=== PATIENT | female | born 1955 | race Caucasian/White ===

== ENCOUNTER 2018-01-27 04:50 | Emergency (ER) | payer BC ==
[~2018-01-27] VITALS: Ht 160 cm; Wt 70.3 kg
[~2018-01-27 04:50] MED LIST: ASPI-655 PO; ATOR40TA PO; METO25TA2 PO
[2018-01-27 04:52] VITALS: BP 155/93
[2018-01-27] MEDS ORDERED: ASPIRIN ONE (05:08)
--- NOTE | 2018-01-27 05:08 | NUR ---
DR. DR. GRIJALVA AT BEDSIDE
[2018-01-27] MEDS ORDERED: LOSA25TA12 PO (05:11)
[2018-01-27] MEDS ORDERED: MAGN250T2 PO (05:11)
[2018-01-27] MEDS ORDERED: NITR0.4T26 SL (05:11)
[2018-01-27] MEDS ORDERED: UBID30CA9 PO (05:15)
[2018-01-27] MEDS ORDERED: CHOL500016 PO (05:15)
--- NOTE | 2018-01-27 05:19 | PCM.EKG ---
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
[2018-01-27 05:20] VITALS: BP 125/83
--- NOTE | 2018-01-27 05:20 | NUR ---
BLOOD OBTAINED VIA IV START BY THIS NURSE AND TAKEN TO LAB PER ORDERS.
--- NOTE | 2018-01-27 05:21 | NUR ---
XRAY RADIOLOGY AT BEDSIDE FOR XRAY
--- NOTE | 2018-01-27 05:23 | ER.PDOC ---
General Chief Complaint: Chest Pain-Cardiac Nature Stated Complaint: SOB/CP Time seen by MD: 05:10 Source: patient Exam Limitations: no limitations History of Present Illness Initial Comments Chest pain on and off for 3 days, woke up this morning with CP and SOB Timing/Duration: 1 hour Severity/Quality: moderate, pressure, sharp Radiation: no radiation Prior CP/Workup: Cardiac Cath Nitro Today/Relief: No Nitro Taken Today Aspirin Today: No Aspirin Today Prior symptoms/Treatment: Similar symptoms previous, Recenly Seen (wearing a monitor for 14 days) Allergies: Coded Allergies: cefdinir (Verified Allergy, Unknown, 01/27/18) cephalexin (Verified Allergy, Unknown, NOT SURE, 05/14/17) magnesium hydroxide (Verified Allergy, Unknown, 01/27/18) magnesium hydroxide (Verified Allergy, Unknown, 01/27/18) Home Meds Active Scripts Aspirin (ASPIRIN EC) 81 Mg Tablet.dr, 81 MG PO DAILY, #30 TAB 3 Refills Prov:YANG CM MD 05/15/17 Metoprolol Succinate (TOPROL XL) 25 Mg Tab.er.24h, 25 MG PO DAILY, #30 TAB 3 Refills Prov:YANG CM MD 05/15/17 Atorvastatin 40MG (LIPITOR 40MG) 40 Mg Tablet, 40 MG PO HS, #30 TABLET 3 Refills Prov:YANG CM MD 05/15/17 Reported Medications Ubidecarenone (COQ-10) 30 Mg Capsule, 30 MG PO DAILY24, CAPSULE 01/27/18 Cholecalciferol (Vitamin D3) (VITAMIN D3) 5,000 Unit Tablet, 1 TAB PO DAILY, # 30 TAB 01/27/18 Nitroglycerin (NITROGLYCERIN) 0.4 Mg Tab.subl, 0.4 MG SL PRN PRN for CHEST PAIN 01/27/18 Magnesium (MAGNESIUM) 250 Mg Tablet, 250 MG PO DAILY24, TABLET 01/27/18 Losartan Potassium (LOSARTAN POTASSIUM) 25 Mg Tablet, 1 TAB PO DAILY, #90 TAB 1 Refill 01/27/18 Past Medical History Medical History: angina, high cholesterol, hypertension Surgical History: cardiac cath, cholecystectomy, , tubal LMP (females 10-50): tubal Social History Smoking: non-smoker Alcohol Use: none Drug Use: none Respiratory: see HPI Cardiovascular: see HPI All Other Systems: Reviewed and Negative Physical Exam General Appearance: No Apparent Distress, WD/WN HEENT: PERRL/EOMI, Normal ENT Inspection, TMs Normal, Pharynx Normal Neck: Non-Tender, Full Range of Motion, Supple, Normal Inspection Respiratory: chest non-tender, lungs clear, normal breath sounds, no respiratory distress, no accessory muscle use Cardiovascular: Normal Peripheral Pulses, Regular Rate, Rhythm, No Edema, No Gallop, No JVD, No Murmur Gastrointestinal: Normal Bowel Sounds, No Organomegaly, No Pulsatile Mass, Non Tender, Soft Extremities: Normal Range of Motion, Non-Tender, Normal Inspection, No Pedal Edema, No Calf Tenderness, Normal Capillary Refill Neurologic/Psychiatric: bench hand machine II-XII NML as Tested, No Motor/Sensory Deficits, Alert, Normal Mood/Affect, Oriented x 3 Skin: Normal Color, Warm/Dry Lymphatic: No Adenopathy Progress Progress 2 sets of Troponin are negative. Spoke to Dr. Hanks suction roller for Dr. Madden , he told me that their office will call patient tomorrow morning and tell her when to come in. Patient continues to be pain free and feels better to go home. EKG/XRAY/CT/US EKG: NSR XRAY: chest (No active disease) Departure Time of Disposition: 08:33 Disposition: 01 HOME, SELF-CARE Impression: Primary Impression: Chest pain Condition: Improved Referrals: YAYO LANDRY NP (PCP) PRIMARY CARE PROVIDER Additional Instructions: F/U with your [employer] tomorrow, expect a call from them. Call them if you do not here from them by noon. Return to ED as needed. Duration or Time Spent with Pa: 90 mins Problem Qualifiers Primary Impression: Chest pain Chest pain type: unspecified Qualified Codes: R07.9 - Chest pain, unspecified ORALIA GRIJALVA MD Jan 27, 2018 05:23 JOSE RHODES MD Jan 27, 2018 08:35
--- NOTE | 2018-01-27 05:25 | NUR ---
STATUS PT RATES PAIN 4/10; STATES SOME RELIEF FROM NITRO. VSS. EDP UPDATED, NO NEW ORDERS AT THIS TIME
[2018-01-27] MEDS ORDERED: ASPIRIN PO PRN (05:30)
[2018-01-27] MEDS ORDERED: NITROSTAT SL PRN (05:30)
[2018-01-27 05:31] LABS: BASOPHIL # 0.1 10^3/uL (0.0-0.1); BASOPHIL % 1.5 % (0.0-0.2); EOSINOPHIL # 0.3 10^3/uL (0.0-0.2); EOSINOPHIL % 4.8 % (0.0-5.0); LYMPHOCYTES # 2.2 10^3/uL (1.0-4.8); LYMPHOCYTES % 37.8 % (24.0-44.0); MEAN CELL HGB 31.2 pg (26-34); MEAN CELL HGB CONCENTRATION 34.1 g/dL (33-37); MEAN CORP VOLUME 91.5 fL (78-100); MEAN PLATELET VOLUME 9.8 fL (7.8-11.0); MONOCYTES # 0.6 10^3/uL (0.3-0.8); NEUTROPHIL # 2.7 10^3/uL (1.8-7.7); NEUTROPHILS % 45.6 % (41.0-85.0); RED CELL DISTRIBUTION WIDTH 13.6 % (11.5-14.5); WHITE BLOOD CELL 5.8 10^3/uL (4.5-11.0)
--- NOTE | 2018-01-27 05:38 | DIREP ---
PROCEDURE:CHEST 1 VIEW COMPARISON:[facility], CR, XRAY CHEST SINGLE VW, 05/14/2017, 11:08 AM. INDICATIONS:cp FINDINGS: LUNGS/PLEURA:No significant pulmonary parenchymal abnormalities. No effusions. VASCULATURE:Normal. Unremarkable pulmonary vasculature. CARDIAC:Normal. No cardiac silhouette abnormality or cardiomegaly. MEDIASTINUM:Normal. No visible mass or adenopathy. BONES:Normal. No fracture or visible bony lesion. OTHER:Electronic device projects over the left hemithorax CONCLUSION:No active cardiopulmonary disease process Dictated by: Phil Levi M.D. on 01/27/2018 at 05:36 AM
[2018-01-27 05:51] LABS: CARBON DIOXIDE 26.1 mmol/L (20.0-32)
[2018-01-27 05:52] LABS: ALANINE AMINOTRANSFERASE(ML) 31 U/L (12-78); ALKALINE PHOSPHATASE 114 U/L (50-136); ASPARTATE AMINO TRANSFERASE 19 U/L (0-35); CALCIUM 9.2 mg/dL (8.4-10.5); GLUCOSE 101 mg/dL (70-110)
[2018-01-27 07:30] VITALS: BP 118/84
--- NOTE | 2018-01-27 07:41 | NUR ---
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
--- NOTE | 2018-01-27 08:05 | NUR ---
[facility] ATTEMPTED TO CALL THE HEART GROUP AGAIN, DOCTOR JOSE SPOKE WITH THEM AND THEY WILL HAVE SOMEONE CALL HIM BACK. Addendum: 01/27/18 at 0810 ilan [facility]
--- NOTE | 2018-01-27 08:30 | NUR ---
STATUS DOCTOR MEAGAN SPOKE WITH DOCTOR RIZZO, WANTS PATIENT TO FOLLOW UP TOMORROW, HIS OFFICE WILL CALL HER TOMORROW.
[2018-01-27 08:45] VITALS: BP 112/83
[2018-01-27 08:46] VITALS: BP 112/83
== END 2018-01-27 08:40 | disposition home or self-care (01) ==
LOC: ER 04:50
DX: R07.9 Chest pain, unspecified (principal); R06.02 Shortness of breath; Z95.818 Presence of other cardiac implants and grafts; I20.9 Angina pectoris, unspecified; E78.00 Pure hypercholesterolemia, unspecified; I10 Essential (primary) hypertension; Z90.49 Acquired absence of other specified parts of digestive tract; Z88.1 Allergy status to other antibiotic agents; Z88.8 Allergy status to other drugs, medicaments and biological substances; Z79.82 Long term (current) use of aspirin; Z79.899 Other long term (current) drug therapy
CPT/HCPCS: 36415; 71045; 80053; 82550; 83880; 84484; 85025; 85610; 85730; 93005; 99285

== ENCOUNTER → 2021-09-06 | Outpatient (CLI) | payer OTHER ==
[~2021-09-06] MED LIST changes: -ASPI-655 PO; +ASPI-929 PO; +CHOL500016 PO; +LOSA25TA12 PO; +MAGN250T3 PO; +NITR0.4T26 SL; +UBID30CA9 PO
[2021-09-06 14:42] LABS: MEAN CORP HGB 31.9 pg (26-34); RED CELL DISTRIBUTION WIDTH 13.1 % (11.5-14.5)
[2021-09-06 15:08] LABS: CARBON DIOXIDE 30.7 mmol/L (20.0-32); GLUCOSE 124 mg/dL (70-110)
== END | disposition home or self-care (01) ==
LOC: LAB 14:29
PROVIDERS: ATTEND Nurse Practitioner Family
DX: R07.9 Chest pain, unspecified (principal); E78.00 Pure hypercholesterolemia, unspecified; I10 Essential (primary) hypertension; R00.2 Palpitations
CPT/HCPCS: 36415; 80053; 80061; 84439; 84443; 84484; 85027

== ENCOUNTER 2022-01-08 08:17 | Emergency (ER) | payer OTHER ==
[~2022-01-08] VITALS: Ht 162.6 cm; Wt 72.6 kg
[2022-01-08 08:52] VITALS: BP 148/115
--- NOTE | 2022-01-08 08:57 | NUR ---
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
[2022-01-08 09:17] VITALS: BP 156/88
--- NOTE | 2022-01-08 09:41 | ER.PDOC ---
General Chief Complaint: General Complaint Stated Complaint: FEVER/CHILLS,COUGH,CONGESTION Time seen by MD: 09:39 Source: patient Exam Limitations: no limitations History of Present Illness Initial Comments Fever, cough and runny nose for 2 days. Timing/Duration: gradual Severity: moderate Associated Symptoms: fever/chills, runny nose, cough Allergies: Coded Allergies: cefdinir (Verified Allergy, Unknown, 01/27/18) cephalexin (Verified Allergy, Unknown, NOT SURE, 05/14/17) magnesium hydroxide (Verified Allergy, Unknown, 01/27/18) magnesium hydroxide (Verified Allergy, Unknown, 01/27/18) Home Meds Active Scripts Aspirin (ASPIRIN EC) 81 Mg Tablet.dr, 81 MG PO DAILY, #30 TAB 3 Refills Prov:YANG CM MD 05/15/17 Metoprolol Succinate (TOPROL XL) 25 Mg Tab.er.24h, 25 MG PO DAILY, #30 TAB 3 Refills Prov:YANG CM MD 05/15/17 Atorvastatin 40MG (LIPITOR 40MG) 40 Mg Tablet, 40 MG PO HS, #30 TABLET 3 Refills Prov:YANG CM MD 05/15/17 Reported Medications Ubidecarenone (COQ-10) 30 Mg Capsule, 30 MG PO DAILY24, CAPSULE 01/27/18 Cholecalciferol (Vitamin D3) (VITAMIN D3) 5,000 Unit Tablet, 1 TAB PO DAILY, #30 TAB 01/27/18 Nitroglycerin (NITROGLYCERIN) 0.4 Mg Tab.subl, 0.4 MG SL PRN PRN for CHEST PAIN 01/27/18 Magnesium (MAGNESIUM) 250 Mg Tablet, 250 MG PO DAILY24, TABLET 01/27/18 Losartan Potassium (LOSARTAN POTASSIUM) 25 Mg Tablet, 1 TAB PO DAILY, #90 TAB 1 Refill 01/27/18 Constitutional: see HPI EENTM: see HPI Respiratory: see HPI Cardiovascular: no symptoms reported Gastrointestinal: no symptoms reported All Other Systems: Reviewed and Negative Past Medical History Medical History: hypertension Surgical History: cholecystectomy, Family History Significant Family History: no pertinent family hx Social History Smoking: non-smoker Alcohol Use: none Drug Use: none Physical Exam Eye: eyes nml inspection Nose: rhinorrhea Throat: pharynx nml, airway nml Neck: nml inspection, supple Respiratory: no resp.distress, breath sounds nml Abdomen: non-tender, no organomegaly CVS: reg rate & rhythm, heart sounds nml Skin: color nml, no rash, warm/dry Extremities: non-tender, nml ROM, no pedal edema NEURO/PSYCH: oriented x 3, CN's nml as tested, motor nml, sensation nml, mood/affect nml Results/Orders Results/Orders Orders - JOSE RHODES MD Influenza A&B (01/08/22 08:48) Strep Screen (01/08/22 08:48) Covid19 Antigen Roxann Thuy (01/08/22 08:48) Vital Signs Date Time Temp Pulse Resp B/P (MAP) Pulse Ox O2 Delivery O2 Flow Rate FiO2 01/08/22 09:17 98.3 93 20 156/88 (110) 96 Room Air* 0 21 01/08/22 08:52 98.3 100 20 01/08/22 08:52 98.3 100 20 148/115 (126) 96 Room Air* 0 21 01/08/22 08:52 98.3 100 20 96 Laboratory Tests Test 01/08/22 00:00 Influenza Type A Antigen NEGATIVE (NEG) Influenza Type B Antigen NEGATIVE (NEG) SARS-CoV-2 Antigen (Rapid) NEGATIVE (NEGATIVE) Group A Streptococcus Screen NEGATIVE (NEGATIVE) ER DEPART Departure Time of Disposition: 09:40 Disposition: 01 HOME / SELF CARE / HOMELESS Impression: Primary Impression: URI, acute Condition: Stable Referrals: YAYO LANDRY NP (PCP) PRIMARY CARE PROVIDER Additional Instructions: Tylenol Mucinex DM [id number] as directed Follow-up with your PCP 1 week Return to ED if worsening symptoms or concerns Duration or Time Spent with Pa: 10 min JOSE RHODES MD Jan 08, 2022 09:41
[2022-01-08 09:48] VITALS: BP 156/88
== END 2022-01-08 09:48 | disposition home or self-care (01) ==
LOC: ER 08:17
DX: J06.9 Acute upper respiratory infection, unspecified (principal); I10 Essential (primary) hypertension; Z90.49 Acquired absence of other specified parts of digestive tract; Z88.1 Allergy status to other antibiotic agents; Z98.890 Other specified postprocedural states; Z20.822 Contact with and (suspected) exposure to COVID-19
CPT/HCPCS: 87070; 87426; 87804; 87880; 99283